=== PATIENT | female | born 1980 | race Caucasian/White ===

== ENCOUNTER → 2016-12-18 | Outpatient (REF) | payer OTHER ==
[~2016-12-18] MED LIST: ACET50TA PO; ADACEL IM; BENA25TA4 PO; CETI10TA GT; DICL50TAB PR; FLINCHW5 PO; IBUP80TA PO; LANOOIN21 EX; MOM30SS PO; PERCOCET PO; PRENTAB40 PO; VALT1TAB PO
== END ==
LOC: M LAB REF 12:21
PROVIDERS: ATTEND Obstetrics & Gynecology
DX: Z12.4 Encounter for screening for malignant neoplasm of cervix (principal)

== ENCOUNTER → 2017-06-05 | Outpatient (REF) | payer OTHER ==
[2017-06-05 17:24] LABS: FREE T4 0.99 NG/DL (0.76-1.46); HCG, SERUM QUANTITATIVE < 1.0 MIU/ML
== END ==
LOC: M LAB REF 16:24
PROVIDERS: ATTEND Advanced Practice Midwife
DX: M54.5 Low back pain (principal); R53.83 Other fatigue; R10.2 Pelvic and perineal pain

== ENCOUNTER → 2017-06-05 | Outpatient (CLI) | payer OTHER ==
--- NOTE | 2017-06-05 13:19 | REP ---
RENAL AND BLADDER ULTRASOUND: Real-time sonographic evaluation of the kidneys performed. Kidneys are normal in size and echotexture, right kidney measuring 11.0 x 4.3 x 3.9 cm and left kidney 9.7 x 4.9 x 4.5 cm. There is no renal mass, hydronephrosis, or nephrolithiasis. Urinary bladder measures 10.4 x 10.4 x 5.6 cm for a total volume of 396 mL. No bladder mass or calculus is seen. Bilateral ureteral jets are seen in the urinary bladder with Doppler color evaluation. Postvoid residual is 15 mL, 4% of the original volume. IMPRESSION: Essentially negative renal and bladder ultrasound. Signed by Alli Hays MD 06/05/2017 05:37 P
== END ==
LOC: M RAD 12:14
PROVIDERS: ATTEND Advanced Practice Midwife
DX: R10.9 Unspecified abdominal pain (principal)

== ENCOUNTER 2018-06-19 07:27 | Day surgery (SDC) | payer OTHER ==
[2018-06-19] MEDS: NS 1,000 ML IV (07:50)
[2018-06-19] MEDS ORDERED: fentaNYL 100 MCG/2 ML INJECTION (J3010) As Ordered (08:46)
[2018-06-19] MEDS ORDERED: PROPOFOL 200 MG/20 ML VIAL As Ordered (08:46)
[2018-06-19] MEDS ORDERED: LIDOCAINE 2% INJ 100 MG/5 ML SDV (FOR ANES.) As Ordered (08:46)
== END 2018-06-19 09:22 | disposition home or self-care (01) ==
LOC: M OPP 07:27
DX: K21.9 Gastro-esophageal reflux disease without esophagitis (principal); K31.89 Other diseases of stomach and duodenum; J45.909 Unspecified asthma, uncomplicated; L30.9 Dermatitis, unspecified; F41.9 Anxiety disorder, unspecified; F32.9 Major depressive disorder, single episode, unspecified; F17.210 Nicotine dependence, cigarettes, uncomplicated; F12.10 Cannabis abuse, uncomplicated; Z88.8 Allergy status to other drugs, medicaments and biological substances; Z79.899 Other long term (current) drug therapy
CPT/HCPCS: 43239

== ENCOUNTER → 2019-01-28 | Outpatient (CLI) | payer OTHER ==
[~2019-01-28] MED LIST changes: +ADDE10TA PO; +ADDE30CA3 PO; +MONT10TA2 PO; +OMEP40CA2 PO; +SYMB16INH INH; +VENTAER INH; +ZYRT10CA5 PO
--- NOTE | 2019-01-29 02:34 | REP ---
Clinical: Cough and shortness of breath . Comparison: 11/16/2016 . Technique: PA and lateral. Findings: The mediastinum and cardiac silhouette are normal. The lung bahena are clear and without acute consolidation, effusion, or pneumothorax. The skeletal structures are intact and normal. Impression: 1. No acute cardiopulmonary process. Electronically Signed by Kavin Castorena MD 01/29/2019 02:26 A
== END ==
LOC: M SMT 14:17
PROVIDERS: ATTEND Physician Assistant
DX: R05 Cough (principal); R06.02 Shortness of breath

== ENCOUNTER → 2019-02-24 | Outpatient (REF) | payer OTHER ==
[~2019-02-24] MED LIST changes: -ACET50TA PO; +MAPA500T17 PO; +OXYC1TAB23 PO; -PERCOCET PO
[2019-02-24 15:38] LABS: INFLUENZA A AMPLIFICATION POSITIVE (NEGATIVE); INFLUENZA B AMPLIFICATION NEGATIVE (NEGATIVE)
== END ==
LOC: M LAB REF 14:54
PROVIDERS: ATTEND Physician Assistant Medical
DX: J11.1 Influenza due to unidentified influenza virus with other respiratory manifestations (principal)

== ENCOUNTER → 2019-07-23 | Outpatient (REF) ==
[2019-07-23 13:34] LABS: BASO % 0.8 % (0.0-1.0); EOS # 0.2 10^3/uL (0.0-0.50); EOS % 3.8 % (0.0-3.0); HEMATOCRIT 38.6 % (36.0-47.0); HEMOGLOBIN 13.5 g/dl (12.0-15.5); LYMPH # 1.5 10^3/uL (1.5-4.5); LYMPH % 32.2 % (24.0-44.0); MEAN CORPUSCULAR VOLUME 94.4 fl (80.0-96.0); MONO # 0.4 10^3/uL (0.0-0.8); MONO % 8.9 % (0.0-5.0); NEUTROPHILS # 2.5 10^3/uL (1.8-7.7); NEUTROPHILS % 53.9 % (36.0-66.0); PLATELET COUNT, AUTOMATED 331 10^3/uL (150-450); RED BLOOD COUNT 4.09 10^6/uL (4.00-5.40); WHITE BLOOD COUNT 4.7 10^3/uL (4.0-10.0)
== END ==
LOC: M LABSMT 13:02
PROVIDERS: ATTEND Allergy & Immunology Allergy
DX: J45.30 Mild persistent asthma, uncomplicated (principal)

== ENCOUNTER → 2020-01-16 | Outpatient (REF) | payer OTHER ==
[~2020-01-16] MED LIST changes: -MONT10TA2 PO; +MONT10TA4 PO; -OMEP40CA2 PO; +OMEP40CA97 PO
[2020-01-16 12:08] LABS: INFLUENZA A AMPLIFICATION NEGATIVE (NEGATIVE); INFLUENZA B AMPLIFICATION POSITIVE (NEGATIVE)
== END ==
LOC: M LAB REF 11:10
PROVIDERS: ATTEND Physician Assistant Medical
DX: R50.9 Fever, unspecified (principal); R05 Cough

== ENCOUNTER → 2020-11-01 | Outpatient (CLI) | payer SELFPAY ==
[~2020-11-01] MED LIST changes: -MONT10TA4 PO; +MONT5TAB2 PO
== END ==
LOC: M LABSMTC 17:55
PROVIDERS: ATTEND Pediatrics
DX: Z11.59 Encounter for screening for other viral diseases (principal)

== ENCOUNTER 2021-06-20 01:42 | Emergency (ER) | payer OTHER ==
[~2021-06-20] VITALS: Ht 162.6 cm; Wt 68.4 kg
[~2021-06-20 01:42] MED LIST changes: +MONT10TA10 PO; -MONT5TAB2 PO; +OMEP40CA4 PO; -OMEP40CA97 PO
[2021-06-20] MEDS ORDERED: TRI-TAB16 (01:56)
[2021-06-20] MEDS ORDERED: ADDE10TA (01:56)
[2021-06-20] MEDS ORDERED: LEXA1TAB (01:56)
[2021-06-20] MEDS ORDERED: AMPH1CAP5 (01:56)
[2021-06-20] MEDS ORDERED: diphenhydrAMINE 50MG/ML VIAL (J1200) IV ONE (02:15)
[2021-06-20] MEDS ORDERED: methylPREDNISolone 125MG 2ML VIAL IV ONE (02:15)
[2021-06-20] MEDS ORDERED: FAMOTIDINE IV BAG 20 MG in IV 1 EA IV ONE (02:15)
[2021-06-20 05:00] VITALS: BP 118/66
[2021-06-20] MEDS ORDERED: PRED20TA PO (05:10)
== END 2021-06-20 05:23 | disposition home or self-care (01) ==
LOC: M ED 01:42
DX: T78.40XA Allergy, unspecified, initial encounter (principal); Y92.9 Unspecified place or not applicable; Y93.9 Activity, unspecified; J45.909 Unspecified asthma, uncomplicated; J30.2 Other seasonal allergic rhinitis; F17.200 Nicotine dependence, unspecified, uncomplicated; Z79.899 Other long term (current) drug therapy; Z88.8 Allergy status to other drugs, medicaments and biological substances
CPT/HCPCS: 96374; 96375; 99284; J1200; J2930

== ENCOUNTER → 2022-04-13 | Outpatient (REF) | payer OTHER ==
[~2022-04-13] MED LIST changes: +ADDE10TA; +AMPH1CAP5; +LEXA1TAB; -MONT10TA10 PO; +MONT10TA97 PO; +PRED20TA PO; +TRI-TAB16
== END ==
LOC: M SFHCDERM 19:06
PROVIDERS: ATTEND Dermatology
DX: L90.5 Scar conditions and fibrosis of skin (principal)

== ENCOUNTER 2022-05-17 11:35 | Emergency (ER) | payer OTHER ==
[~2022-05-17] VITALS: Ht 162.6 cm; Wt 66.9 kg
[2022-05-17] MEDS ORDERED: VIIB20TA (11:48)
[2022-05-17] MEDS ORDERED: TRAZ-252 (11:48)
[2022-05-17] MEDS ORDERED: BENA25CA4 PO (11:48)
[2022-05-17] MEDS ORDERED: dexameTHASONE 20MG/5ML VIAL (J1100 PER 1MG) IV ONE (13:50)
[2022-05-17] MEDS ORDERED: FAMOTIDINE 20MG/2ML VIAL IVP ONE (13:50)
[2022-05-17] MEDS ORDERED: NS 1,000 ML IV ONE (13:50)
[2022-05-17] MEDS ORDERED: diphenhydrAMINE 50MG/ML VIAL (J1200) IV ONE (13:50)
[2022-05-17 14:14] LABS: BASO % 0.1 % (0.0-1.0); EOS # 0.2 10^3/uL (0.0-0.5); EOS % 1.7 % (0.0-3.0); HEMATOCRIT 45.5 % (36.0-47.0); HEMOGLOBIN 15.8 g/dl (12.0-15.5); LYMPH # 2.2 10^3/uL (1.5-5.0); LYMPH % 17.8 % (24.0-44.0); MEAN CORPUSCULAR HEMOGLOBIN 31.3 pg (27.0-33.0); MEAN CORPUSCULAR HGB CONC 34.7 g/dl (32.0-36.5); MEAN CORPUSCULAR VOLUME 90.1 fl (80.0-96.0); MONO # 0.3 10^3/uL (0.0-0.8); MONO % 2.4 % (2.0-8.0); NEUTROPHILS # 9.7 10^3/uL (1.5-8.5); NEUTROPHILS % 77.6 % (36.0-66.0); PLATELET COUNT, AUTOMATED 387 10^3/uL (150-450); RED BLOOD COUNT 5.05 10^6/uL (4.00-5.40); WHITE BLOOD COUNT 12.5 10^3/uL (4.0-10.0)
[2022-05-17 16:15] VITALS: BP 127/67
[2022-05-17 16:16] LABS: BLOOD UREA NITROGEN 13 MG/DL (7-18); CALCIUM LEVEL 7.8 MG/DL (8.5-10.1); CARBON DIOXIDE LEVEL 24 MEQ/L (21-32); CHLORIDE LEVEL 110 MEQ/L (98-107); CREATININE FOR GFR 0.85 MG/DL (0.55-1.30); GLOMERULAR FILTRATION RATE > 60.0 (>58); GLUCOSE, FASTING 79 MG/DL (70-100); POTASSIUM SERUM 3.7 MEQ/L (3.5-5.1); SODIUM LEVEL 141 MEQ/L (136-145)
[2022-05-17] MEDS ORDERED: EPIP0.3I2 IM (16:17)
[2022-05-17] MEDS ORDERED: FAMO40TA3 PO (16:17)
[2022-05-17] MEDS ORDERED: PRED20TA PO (16:17)
== END 2022-05-17 16:29 | disposition home or self-care (01) ==
LOC: M ED 11:35
DX: L50.9 Urticaria, unspecified (principal); F17.200 Nicotine dependence, unspecified, uncomplicated
CPT/HCPCS: 36415; 80048; 84702; 85025; 93041; 94760; 96361; 96374; 99285; J1100; J1200

== ENCOUNTER 2022-06-16 03:43 | Emergency (ER) | payer OTHER ==
[~2022-06-16] VITALS: Ht 165.1 cm; Wt 63.6 kg
[~2022-06-16 03:43] MED LIST changes: +BENA25CA4 PO; +EPIP0.3I2 IM; +FAMO40TA3 PO; +TRAZ-252; +VIIB20TA
[2022-06-16] MEDS ORDERED: diphenhydrAMINE 50MG/ML VIAL (J1200) IV STA (04:39)
[2022-06-16] MEDS ORDERED: methylPREDNISolone 125MG 2ML VIAL IV ONE (04:40)
[2022-06-16] MEDS ORDERED: FAMOTIDINE 20MG/2ML VIAL IVP ONE (04:40)
[2022-06-16] MEDS ORDERED: PRED20TA PO (05:56)
[2022-06-16] MEDS ORDERED: FAMO40TA3 PO (05:56)
[2022-06-16] MEDS ORDERED: BENA25CA4 PO (05:56)
[2022-06-16] MEDS ORDERED: EPIP0.3I2 IM (05:58)
[2022-06-16 10:11] VITALS: BP 119/99
== END 2022-06-16 11:03 | disposition home or self-care (01) ==
LOC: M ED 03:43
DX: T78.2XXA Anaphylactic shock, unspecified, initial encounter (principal); Y92.89 Other specified places as the place of occurrence of the external cause; K21.9 Gastro-esophageal reflux disease without esophagitis; F90.9 Attention-deficit hyperactivity disorder, unspecified type; Z88.8 Allergy status to other drugs, medicaments and biological substances; Z79.899 Other long term (current) drug therapy; Z79.3 Long term (current) use of hormonal contraceptives; F17.200 Nicotine dependence, unspecified, uncomplicated
CPT/HCPCS: 96374; 96375; 99284; J1200; J2930

== ENCOUNTER 2023-07-24 16:40 | Emergency (ER) | payer OTHER ==
[~2023-07-24] VITALS: Ht 162.6 cm; Wt 72.7 kg
[2023-07-24 16:41] VITALS: TEMP 97.5
[2023-07-24] MEDS ORDERED: FAMOTIDINE 20MG/2ML VIAL IVP ONE (17:05)
[2023-07-24] MEDS ORDERED: dexAMETHasone 20MG/5ML VIAL IV ONE (17:05)
[2023-07-24] MEDS ORDERED: dexAMETHasone 20MG/5ML VIAL As Ordered ONE (17:08)
[2023-07-24 17:25] VITALS: O2SAT 98
[2023-07-24 17:30] VITALS: BP 128/86
[2023-07-24] MEDS ORDERED: diphenhydrAMINE 50MG/ML VIAL IV STA (18:26)
[2023-07-24] MEDS ORDERED: PRED20TA PO (19:27)
[2023-07-24] MEDS ORDERED: EPIP0.3I2 IM (19:27)
[2023-07-24] MEDS ORDERED: PEPC1TAB5 PO (19:27)
== END 2023-07-24 19:49 | disposition home or self-care (01) ==
LOC: M ED 16:40
DX: R22.0 Localized swelling, mass and lump, head (principal); T78.3XXA Angioneurotic edema, initial encounter; Z88.8 Allergy status to other drugs, medicaments and biological substances; Z91.018 Allergy to other foods; Z79.899 Other long term (current) drug therapy; Z79.51 Long term (current) use of inhaled steroids
CPT/HCPCS: 93041; 94760; 96374; 96375; 99284; J1100; J1200; S0028

== ENCOUNTER 2024-07-11 16:04 | Emergency (ER) | payer OTHER ==
[~2024-07-11] VITALS: Ht 162.6 cm; Wt 72.6 kg
[2024-07-11 16:04] VITALS: TEMP 97.8
[~2024-07-11 16:04] MED LIST changes: +PEPC1TAB5 PO
[2024-07-11] MEDS: predniSONE 20 MG TAB PO ONE (17:55)
[2024-07-11 18:30] VITALS: BP 122/77; O2SAT 99
[2024-07-11] MEDS ORDERED: PRED20TA PO (18:59)
== END 2024-07-11 19:07 | disposition home or self-care (01) ==
LOC: M ED 16:04
DX: T78.40XA Allergy, unspecified, initial encounter (principal); K21.9 Gastro-esophageal reflux disease without esophagitis; F90.9 Attention-deficit hyperactivity disorder, unspecified type; F17.210 Nicotine dependence, cigarettes, uncomplicated; Z91.09 Other allergy status, other than to drugs and biological substances; Z91.018 Allergy to other foods; Z79.51 Long term (current) use of inhaled steroids; Z79.899 Other long term (current) drug therapy; Z79.52 Long term (current) use of systemic steroids
CPT/HCPCS: 93041; 94760; 99284; J7512